=== PATIENT | male | born 1935 | race Caucasian/White ===

== ENCOUNTER 2016-07-24 10:56 | Inpatient (IN) | payer MEDICARE, OTHER ==
[~2016-07-24] VITALS: Ht 172.7 cm; Wt 129.5 kg
--- NOTE | 2016-08-02 18:38 | NUR ---
DAY SHIFT SUMMARY 08/01 AND : EATS SLOWLY; MAX ASSIST FOR GROOMONG AND SHOWERING (PT ONLY ABLE TO WASH/DRY ABD/CHESTAND ARMS)-NOT PARTICULARY MOTIVATED-NEEDS ENCOURAGEMENT; MAX ASSIST FOR UPPER DRESSING; TOTAL ASSIST FOR LOWER DRESSING, TOILETING, BLADDER MANAGEMENT, LOCOMOTION. MOD ASSIST OF 1 FOR BED/W/C/TOILET AND SHOWER TRANSFERS; MIN PROMPTING FOR COMPREHENSION, EXPRESSION AND IS ON ANTIDEPRESSANT, MOD PROMPTING/CUING RT PROBLEM SOLVING AND MEMORY.
[2016-08-11] MEDS ORDERED: CELEXA DPS20 MG PO (12:14)
[2016-08-11] MEDS ORDERED: ELIQUIS5 MG PO (12:14)
[2016-08-11] MEDS ORDERED: FEOSOL-DPS325 MG PO (12:14)
[2016-08-11] MEDS ORDERED: CARVEDILOL25 MG PO (12:14)
[2016-08-11] MEDS ORDERED: MICRO-K DPS10 MEQ PO (12:15)
[2016-08-11] MEDS ORDERED: NORVASC2.5 MG PO (12:15)
[2016-08-11] MEDS ORDERED: GLUCOPHAGE-DPS500 MG PO (12:15)
[2016-08-11] MEDS ORDERED: MOBIC DPS7.5 MG PO (12:15)
[2016-08-11] MEDS ORDERED: PRAVACHOL40 MG PO (12:15)
[2016-08-11] MEDS ORDERED: ASCORBIC ACID500 MG PO (12:16)
[2016-08-11] MEDS ORDERED: OCEAN NASAL MIS45 ML NS (12:16)
[2016-08-11] MEDS ORDERED: VITAMIN D1000 UNI1 PO (12:16)
[2016-08-11] MEDS ORDERED: MAALOX DPS30 ML PO (12:16)
[2016-08-11] MEDS ORDERED: XALATAN2.5 ML OU (12:16)
[2016-08-11] MEDS ORDERED: TYLENOL DPS325 MG PO (12:17)
[2016-08-11] MEDS ORDERED: DULCOLAX10 MG PR (12:17)
[2016-08-11] MEDS ORDERED: SENOKOT S1 TAB PO (12:17)
[2016-08-11] MEDS ORDERED: SPORTS CREAM85 GM TP (12:17)
--- NOTE | 2016-09-11 13:00 | DS ---
ADMIT: 07/24/2016 RM/LOC: [facility] MR#: [id number] [address] [address] KULWANT MCCOLLUM [address] [id number] General Discharge Summary SEX: M AGE: 80 : 1935 ADMISSION DATE: 07/24/2016 DISCHARGE DATE: 08/10/2016 DISCHARGE DIAGNOSIS: Debility 16, debility noncardiac, nonpulmonary, R53.1 weakness, onset 07/05/2016, comorbid conditions on initial H and P. Other diagnosis per hospital course below. HOSPITAL COURSE: Please see my initial H and P for details prior to transfer to the IRU. Eliquis was continued for prophylaxis, atrial fibrillation and DVT prophylaxis. Pain and bowel regimen adjusted. H2 alida decreased to limit risk of C. diff. Lab was monitored regularly. Dietitian followed to optimize nutrition. Pharmacy followed to optimize medication management. Claritin for allergic rhinitis. Stage II pressure ulcer noticed upon admission and so we used SensiCare low air loss mattress. Wound Care referral. Postvoid residuals obtained. Sliding scale insulin continued. PPI discontinued. Switched to H2 alida. As mentioned before, decreased risk of C. difficile. Pravachol adjusted for hyperlipidemia. Bowel regimen adjusted for constipation. EdemaWear bilateral lower extremities for peripheral edema. PVR was abnormal initially, came down to 34 normal and then 18. Joey wraps done to upper and lower limbs for peripheral edema. Metformin started for diabetes. Levemir discontinued, switched to metformin from Levemir. NovoLog decreased to low-dose. Feosol and vitamin C given for iron deficiency. Pepcid discontinued. Use Maalox p.r.n. GERD. Senokot-S for constipation. Sliding scale insulin adjusted. [place] Nasal Mist for dry nose. DNR/DNI decision on 07/28/2016. Sliding scale insulin discontinued. Accu-Cheks done q.a.m. fasting. Timed voids before bed and decrease fluid right before bed to decrease nocturia and incontinence. Vitamin D deficiency replaced. Joey wraps switched to EdemaWear. Eliquis increased to 5 mg b.i.d. as recommended by pharmacy. Celexa increased to 20 mg for depression. Zofran for nausea p.r.n. Diabetic diet was ensured. Lab was followed up on. Regular textured solids by 08/03/2016 after speech therapy did swallow evaluation. PlexiPulse was done for feet to help with the edema. Elevate legs often during day for edema. High-protein diet. Protein supplements for edema. Hypokalemia replaced. Hypomagnesemia replaced. Lasix given for edema. Gabapentin started for diabetic neuropathy and foot pain. Lasix and KCl again given for peripheral edema. Neurontin increased for peripheral neuropathy and neuropathic pain. We finally were able to get his issues on by 08/06/2016. Gabapentin discontinued. Norvasc adjusted for hypertension. Slow-Mag ADMIT: 07/24/2016 RM/LOC: [facility] MR#: [id number] [address] [address] KULWANT MCCOLLUM [address] [place] [address] General Discharge Summary SEX: M AGE: 80 : 1935 discontinued. Zofran and DuoNeb no longer necessary. Meloxicam restarted for osteoarthritis pain. The patient was medically stable at the time of discharge. Please see IRU interdisciplinary discharge summary for details regarding progress in therapy. DISCHARGE DISPOSITION: [facility] skilled nurse facility for continued subacute rehabilitation. DISCHARGE MEDICATIONS: Please see discharge med rec. FOLLOWUP: To be determined. Dr. Reid in [place] was notified of transition to [facility]. Demian Mckenzie MD/ sam JOB #: [id number] CC:
== END 2016-08-10 13:25 | DRG 945 ==
LOC: 6IRU 11:35
PROVIDERS: ADMIT Physical Medicine & Rehabilitation
PROC: F07Z9YZ Gait Training/Functional Ambulation Treatment using Other Equipment (ICD-10-PCS; principal; 2016-07-24)
PROC: F08Z1FZ Dressing Techniques Treatment using Assistive, Adaptive, Supportive or Protective Equipment (ICD-10-PCS; principal; 2016-07-24)
PROC: F06ZDZZ Swallowing Dysfunction Treatment (ICD-10-PCS; principal; 2016-07-24)
PROC: F08Z2FZ Grooming/Personal Hygiene Treatment using Assistive, Adaptive, Supportive or Protective Equipment (ICD-10-PCS; principal; 2016-07-24)
DX: R53.81 Other malaise (principal); D62 Acute posthemorrhagic anemia; E87.0 Hyperosmolality and hypernatremia; Z68.42 Body mass index [BMI] 45.0-49.9, adult; L89.152 Pressure ulcer of sacral region, stage 2; E11.40 Type 2 diabetes mellitus with diabetic neuropathy, unspecified; I48.0 Paroxysmal atrial fibrillation; R13.10 Dysphagia, unspecified; D50.9 Iron deficiency anemia, unspecified; E83.42 Hypomagnesemia; E66.01 Morbid (severe) obesity due to excess calories; E55.9 Vitamin D deficiency, unspecified; E87.6 Hypokalemia; G47.00 Insomnia, unspecified; R32 Unspecified urinary incontinence; M62.81 Muscle weakness (generalized); R60.0 Localized edema; R26.2 Difficulty in walking, not elsewhere classified; H40.9 Unspecified glaucoma; K59.00 Constipation, unspecified; J30.9 Allergic rhinitis, unspecified; F32.9 Major depressive disorder, single episode, unspecified; I10 Essential (primary) hypertension; K21.9 Gastro-esophageal reflux disease without esophagitis; M19.90 Unspecified osteoarthritis, unspecified site; E78.5 Hyperlipidemia, unspecified; Z79.01 Long term (current) use of anticoagulants; Z66 Do not resuscitate; Z87.891 Personal history of nicotine dependence